=== PATIENT | female | born 1955 | race Caucasian/White ===

== ENCOUNTER 2024-11-12 15:07 | Inpatient (IN) | payer MEDICARE, SELFPAY ==
[2024-11-12 15:16] VITALS: BP 124/71; PULSE 95; RESP 16; TEMP 36.3; O2SAT 97; BMI 22.8
[2024-11-12 15:59] VITALS: BP 124/71; PULSE 95; RESP 16; TEMP 36.3; O2SAT 97
[2024-11-12 16:00] VITALS: BMI 22.8
[2024-11-12] MEDS: oxyCODONE 5 MG Tablet PO ×2 (17:13→23:14)
--- NOTE | 2024-11-12 20:05 | HP.PCM_ITS ---
HPI - General General Date of Admission: 11/12/24 Date of Service: 11/12/24 Chief Complaint: Here for rehabilitation. HPI Narrative GENEVA TERRY, is a 69 Female who presents with followin11/05/2024 Admit [facility]. 11/05/2024 Dr. Barnes performed right total knee replacement. 11/05/2024 Postop pain controlled, tolerating diet, passing flatus. Good urine output. 11/08/2024 Consider discharge home with daughter. Need to decrease pain medications due to somnolence and concurrent use of psychiatric medications. 11/09/2024 Pain control PT/OT. SCD's for dvt prophylaxis. 11/09/2024 PT/OT for SNF. 11/12/2024 Admit to TCU with debility, here for rehabilitation, strengthening, prior to discharge home with daughter. 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 [facility] Medical History (Updated 11/12/24 @ 20:[address] Alli Gutierrez MD) Sleep apnea Osteoporosis Gastric ulcer Dizziness Chronic back pain Osteoarthritis of right knee Anxiety Anemia Debility Arthroplasty of knee planned Medical History no medical history Home Medications ?Medication ?Instructions ?Recorded ?Last Taken ?Type acetaminophen 500 mg capsule 500 mg PO Q4H PRN pain Unknown History apixaban 2.5 mg tablet (Eliquis) 2.5 mg PO BID Blood T hinner 11/12/24 11/12/24 11:30 History benztropine 1 mg tablet 1 mg PO BID Hypersomnia 11/01 08/28 Unknown History buprenorphine 10 mcg/hour weekly 1 patch topical Q7D P ain 11/12/24 Unknown History transdermal patch diazepam 10 mg tablet 10 mg PO QHS PRN PRN sleep 0 11/12/24 Unknown History ferrous sulfate 325 mg (65 mg 325 mg PO DAILY Suppleme nt 11/12/24 Unknown History iron) tablet (FeroSul) mirtazapine 30 mg tablet 45 mg PO QHS Mood 11/12/24 U nknown History omeprazole 20 mg capsule,delayed 40 mg PO DAILY Gastri c Bypass 11/12/24 Unknown History release ondansetron 4 mg disintegrating 4 mg PO Q8H PRN PRN na usea/vomiting 11/12/24 Unknown History tablet oxycodone 5 mg tablet 5 mg PO Q6H PRN pain (scale score 11/12/24 Unknown History 7-10) oxycodone-acetaminophen 5 mg-325 1 - 2 tab PO Q6H PRN PRN pain 11/12/24 11/12/24 11:25 History mg tablet potassium chloride 10 mEq 10 meq PO DAILY Supplement 0 11/12/24 Unknown History tablet,extended release psyllium 1 packet PO DAILY Gastric by pass 11/12/24 Unknown History quetiapine 100 mg tablet 200 mg PO QHS Mood 11/12/24 Unknown History Allergy/AdvReac Type Severity Reaction Status Date / Time Sulfa (Sulfonamide Allergy Rash Verified 11/12/24 16:01 Antibiotics) (sulfa drugs) Family History (Updated 11/12/24 @ 20:[address] Alli Gutierrez MD) Mother Breast cancer Father Heart disease Sister Multiple sclerosis Family History no significant family his Surgical History (Updated 11/12/24 @ 20:[address] Alli Gutierrez MD) History of tonsillectomy Hx of LASIK History of implanted electronic device History of gastric bypass History of colonoscopy History of cataract surgery History of arthroscopy of right knee Status post total right knee replacement Social History (Updated 11/12/24 @ 20:[address] Alli Gutierrez MD) household members: spouse Smoking Status: Never smoker alcohol intake: never substance use type: does not use ROS Constitutional Constitutional: Reports weakness; Denies chills, fever(s) or weight gain ENT HEENT: Denies headache(s), nasal congestion or nasal discharge Cardiovascular Cardiovascular: Denies chest pain or palpitations Respiratory/Chest Respiratory/Chest: Denies cough, excessive phlegm production or shortness of breath with exertion Gastrointestinal Gastrointestinal: Denies abdominal pain, nausea or vomiting Genitourinary Genitourinary: Denies dysuria Musculoskeletal Musculoskeletal: Denies joint pain or joint swelling Integumentary Integumentary: Denies rash or wounds Neurologic Neurologic: Denies focal weakness, numbness or tingling Psychiatric Psychiatric: Denies anxiety, auditory hallucinations, depression, homicidal ideation or suicidal ideation Vital Signs Vital Signs Vital Signs: 11/12/24 15:16 11/12/24 15:16 11/12/24 15:59 Temperature 97.3 F L 97.3 F L Temperature Source Temporal Temporal Pulse Rate 95 95 95 Pulse Rhythm Regular Pulse Strength Normal (2+) Respiratory Rate 16 16 16 Respiratory Effort Normal Non-Labored Respiratory Depth Normal Respiratory Pattern Normal Blood Pressure 124/71 H 124/71 H Blood Pressure Mean 88 88 Blood Pressure Source Monitor Monitor Blood Pressure Position Semi-Fowlers Semi-Fowlers Blood Pressure Location Left Arm Right Arm Pulse Ox 97 97 97 Oxygen Delivery Method Room Air Room Air Room Air Weight Weight: 58.655 kg Body Mass Index (BMI) 22.8 Physical Exam Const alert General Appearance: cooperative HEENT normocephalic Eyes PERRL and EOMs intact bilaterally Neck supple, no JVD and no carotid bruits Resp normal respiratory effort, normal air movement and clear to auscultation bilaterally Cardio regular rate and regular rhythm GI normal to inspection, nondistended, normoactive bowel sounds, non-tender and non-distended Extremity normal capillary refill General Extremity: Negative for edema Skin no rashes or lesions noted General Skin Exam: no breakdown Psych affect normal Appearance: appropriate Assessment & Plan Assessment/Plan (1) Debility: (2) Status post total right knee replacement: (3) Anemia: (4) Anxiety: (5) Osteoarthritis of right knee: (6) Chronic back pain: (7) Dizziness: (8) Gastric ulcer: (9) Osteoporosis: (10) Sleep apnea: PLAN: Plan 69 year old female with below past medical history underwent right total knee arthroplasty 11/05/[address] Barnes, postoperative course uncomplicated, admitted to TCU with debility, here for rehabilitation, strengthening, prior to discharge home with daughter. * Debility - PT/OT. * Pain - Tylenol 500mg q4 prn pain (1-10), Oxycodone 5-10mg q6 prn pain (4-10). * Bowel - Metamucil 1 packet daily, senna/colace 2 tablets bid, Magnesium citrate 300mL daily prn. * Adult immunization - Administer pneumonia vaccine, covid vaccine, flu vaccine as appropriate. * DVT prophylaxis - Eliquis 2.5mg bid thru 12/12/2024. * Chronic pain - Butrans 10mcg 1 patch td qFr. * Iron deficiency anemia - Ferrous sulfate 325mg daily. * Nausea - Zofran odt 4mg q8 prn. * Gastric ulcer - Pantoprazole 40mg daily. * Hypokalemia - KCL 10meq daily. * Extrapyramidal symptoms - Cogentin 1mg bid. The following psychotropic medication was present on admission: Diazepam 10mg qhs prn. Psychotropic medication therapy is indicated for a diagnosis of: Anxiety. Based on my clinical evaluation, continuation of the medication is necessary at this time. Gradual dose reduction plan (select one): ____ GDR will be attempted. Will monitor patient symptoms and behaviors in response to GDR. _x___ GRD contraindicated. Reason contraindicated: stable chronic residential use. The following psychotropic medication was present on admission: Mirtazapine 45mg qhs. Psychotropic medication therapy is indicated for a diagnosis of: Depression. Based on my clinical evaluation, continuation of the medication is necessary at this time. Gradual dose reduction plan (select one): ____ GDR will be attempted. Will monitor patient symptoms and behaviors in response to GDR. __x__ GRD contraindicated. Reason contraindicated: stable chronic residential use. The following psychotropic medication was present on admission: Seroquel 200mg qhs. Psychotropic medication therapy is indicated for a diagnosis of: Schizophrenia. Based on my clinical evaluation, continuation of the medication is necessary at this time. Gradual dose reduction plan (select one): ____ GDR will be attempted. Will monitor patient symptoms and behaviors in response to GDR. __x__ GRD contraindicated. Reason contraindicated: stable chronic residential use.
[2024-11-12] MEDS: Acetaminophen 500 MG Tablet PO (21:06)
[2024-11-12] MEDS: Mirtazapine 30 MG Tablet 45 MG PO (21:08)
[2024-11-12] MEDS: APIXABAN 2.5 MG TABLET (WCH) PO (21:08)
[2024-11-12] MEDS: QUEtiapine 100 MG Tablet 200 MG PO (21:09)
[2024-11-12] MEDS: Benztropine 2 MG Tablet 1 MG PO (21:09)
[2024-11-13 05:20] LABS: Absolute Lymphocyte Count 2.38 X10^3/uL (0.83-4.51); Absolute Neutrophil Count 3.2 X10^3/uL (2.0-7.7); Basophil# 0.01 X10^3/uL; Basophil% 0.2 % (0-1); Eosinophil# 0.16 X10^3/uL; Eosinophils% 2.4 % (0-5); Hematocrit 27.1 % (37-47); Hemoglobin 8.9 g/dL (12.0-15.0); Lymphocyte # 2.38 X10^3/ul (0.83-4.51); Lymphocyte % 36.4 % (19-41); Mean Corp Hgb Conc 32.8 g/dL (32-36); Mean Corpuscular Hgb 32.4 pg (27.0-32.0); Mean Corpuscular Volume 98.5 fL (81-99); Mean Platelet Vol. 8.6 fl (6.2-12.0); Monocyte# 0.82 X10^3/uL; Monocyte% 12.5 % (0-10); NRBC Flagged by Analyzer 0 % (0-5); Neutrophil # 3.15 X10^3/uL (2.7-7.7); Neutrophil % 48.2 % (47-70); Platelet Count 381 K/mm3 (150-450); RBC Distribution Width CV 14.6 % (11.6-14.6); RBC Distribution Width SD 51.7 fl (35.1-43.9); Red Blood Count 2.75 M/mm3 (4.2-5.4); White Blood Count 6.5 K/mm3 (4.4-11.0)
[2024-11-13 06:06] LABS: Anion Gap 9 (5-15); BUN 11 mg/dL (4-19); BUN/Creat Ratio 17.8 RATIO (10-20); Calcium,Total 8.7 mg/dL (7.6-11.0); Carbon Dioxide 22.5 mmol/L (21.0-32.0); Chloride 104 mmol/L (98-108); EST Glomerular Filtration Rate 97 (>60); Glucose 98 mg/dL (70-99); Potassium 3.7 mmol/L (3.3-5.1); Sodium Level 135 mmol/L (133-145)
[2024-11-13] MEDS: oxyCODONE 5 MG Tablet PO ×3 (06:47→18:58)
--- NOTE | 2024-11-13 06:51 | NURSING ---
Patient called out for pain medication this morning to DEBRIDGING MACHINE OPERATOR, DEBRIDGING MACHINE OPERATOR told this nurse patient seems out of it. This nurse went to assess patient. Patient mumbling and was not able to answer orientation questions or follow commands, on several psychotropics for insomnia and anxiety. Patient closed eyes while nurse was in the room and had fallen back asleep. Upon rounds, patient resting with eyes closed. Two hours later, patient calls out for pain medications, much more alert and responsive, A/O x3. Vitals stable, HR 90 and BP 135/77. Patient rated pain 8/10, PRN oxy 10mg administered per patient's request and pain score. [facility] refilled with ice. Patient denies further assistance.
[2024-11-13 06:57] VITALS: BP 135/77; PULSE 90
--- NOTE | 2024-11-13 08:01 | PCM.PN.DRR ---
Documented by User: Valentina Dawkins 11/13/24 08:46 TCU RX Drug Regimen Review Subjective/Objective Subjective/Objective Subjective: TCU Admission. 69 YOF underwent right total knee arthroplasty 11/05/[address] Barnes, postoperative course uncomplicated. Admitted to TCU with debility for strengthening and rehabilitation. Objective: Allergies Sulfa (Sulfonamide Antibiotics) (sulfa drugs) Allergy (Verified 11/12/24 16:01) Rash Current Medications Generic Name Dose Route Start Last Admin Trade Name Freq PRN Reason Stop Dose Admin Acetaminophen 1,000 mg 11/13/24 14:00 Acetaminophen 500 Mg Tablet PO Q8 SHERYL Apixaban 2.5 mg 11/12/24 22:00 11/12/24 21:08 Apixaban 2.5 Mg Tablet ([facility]) PO 12/12/24 22:01 2.5 mg BID SHERYL Administration Benztropine Mesylate 1 mg 11/12/24 22:00 11/12/24 21:09 Benztropine 2 Mg Tablet PO 1 mg BID SHERYL Administration Buprenorphine 1 patch 11/16/24 10:00 Buprenorphine 10 Mcg Patch.Tdwk TD FR SHERYL Diazepam 10 mg 11/12/24 16:10 Diazepam 5 Mg Tablet PO QHS PRN PRN sleep Ferrous Sulfate 325 mg 11/13/24 12:00 Ferrous Sulfate 325 Mg Tablet PO DAILY@1200 [facility] Magnesium Citrate 300 ml 11/12/24 20:24 Magnesium Citrate 300 Ml PO DAILY PRN PRN CONSTIPATION Mirtazapine 45 mg 11/12/24 22:00 11/12/24 21:08 Mirtazapine 30 Mg Tablet PO 45 mg QHS [facility] Administration Ondansetron HCl 4 mg 11/12/24 15:44 Ondansetron Odt 4 Mg Tablet PO Q8H PRN PRN nausea/vomiting Oxycodone HCl 5 - 10 mg 11/13/24 07:46 Oxycodone 5 Mg Tablet PO Q4H PRN PRN Pain Score 4-10 or Pre PT/OT Pantoprazole Sodium 40 mg 11/13/24 10:00 Pantoprazole Sodium 40 Mg Tablet PO DAILY SHERYL Potassium Chloride 10 meq 11/13/24 08:00 Potassium Chloride [facility] Psyllium Hydrophilic Mucilloid 1 packet 11/13/24 10:00 Psyllium 1 Packet PO DAILY SHERYL Quetiapine Fumarate 200 mg 11/12/24 22:00 11/12/24 21:09 Quetiapine 100 Mg Tablet PO 200 mg QHS SHERYL Administration Protocol Senna/Docusate Sodium 2 tablet 11/12/24 22:00 11/12/24 21:12 Senna/Docusate Sodium 1 Tablet PO Not Given BID SHERYL Tuberculin PPD 0.1 ml 11/13/24 10:00 Tuberculin,Purif.Prot.Deriv. 50 Tu/Ml Vial ID 11/13/24 10:01 X1 ONE Tuberculin PPD 0.1 ml 11/20/24 10:00 Tuberculin,Purif.Prot.Deriv. 50 Tu/Ml Vial ID 11/20/24 10:01 X1 ONE Problem List Sleep apnea (Acute) Osteoporosis (Acute) Gastric ulcer (Acute) Dizziness (Acute) Chronic back pain (Chronic) Osteoarthritis of right knee (Acute) Anxiety (Acute) Anemia (Acute) Status post total right knee replacement (Acute) Debility (Acute) Vital Signs Temp Pulse Resp BP Pulse Ox O2 Del Method 97.3 F L 90 16 135/77 H 97 Room Air 11/12/24 15:59 11/13/24 06:57 11/12/24 15:59 11/13/24 06:57 11/12/24 15:59 11/12/24 15:59 Oxygen Delivery Method Room Air Weight: 58.655 kg Body Mass Index (BMI) 22.8 Sodium 135 mmol/L (133-145) 11/13/24 05:13 Potassium 3.7 mmol/L (3.3-5.1) 11/13/24 05:13 Chloride 104 mmol/L (98-108) 11/13/24 05:13 Carbon Dioxide 22.5 mmol/L (21.0-32.0) 11/13/24 05:13 Anion Gap 9 (5-15) 11/13/24 05:13 BUN 11 mg/dL (4-19) 11/13/24 05:13 Creatinine 0.60 mg/dL (0.70-1.20) L 11/13/24 05:13 Est GFR (MDRD) Non-Af 97 (>60) 11/13/24 05:13 BUN/Creatinine Ratio 17.8 RATIO (10-20) 11/13/24 05:13 Glucose 98 mg/dL (70-99) 11/13/24 05:13 Assessment/Plan: 1. Pain/chronic pain: acetaminophen 1000mg PO Q8, Butrans 10mcg patch topically on fridays, oxycodone 5-10mg PO Q4H PRN pain 6-10 (3 doses given for pain scores of 8 and 10 in the knee). Changes made this morning. Please continue to monitor for increased pain, PRN usage, constipation, respiratory depression, falls (BEERs). 2. Bowel: psyllium 1 packet PO daily, senna/docusate 2T PO BID and magnesium citrate 300mL PO daily PRN constipation (no doses given). Please continue to monitor for constipation, diarrhea. Last documented bowel movement was 11/11/24. 3. DVT prophylaxis: apixaban 2.5mg PO BID thru 12/12/24. Please continue to monitor for S/S of bleeding/DVT and hemoglobin (last 8.9g/dL). 4. Iron deficiency anemia: ferrous sulfate 325mg PO daily. Please continue to monitor hemoglobin, constipation, dark stools. 5. Gastric ulcer: pantoprazole 40mg PO daily. Please continue to monitor for diarrhea (BEERs), bleeding, and stomach pain. 6. Extrapyramidal symptoms: benztropine 1mg PO BID. Please continue to monitor for dementia/delirium (BEERs), anticholinergic side effects (constipation, dry mouth, dry eyes, BEERs), drowsiness. 7. Nausea: ondansetron ODT 4mg PO Q8 PRN nausea. No PRN doses given. Please continue to monitor for nausea and PRN usage. 8. Hypokalemia: potassium chloride 10mGq PO daily. Please continue to monitor potassium (last 3.7mmol/L 11/13/24). Assessment/Plan for indications treated with psychotropic medications: 1. Major depression: mirtazapine 45mg PO QHS and quetiapine 200mg PO QHS. Please see physician note regarding GDR. Monitor for drowsiness, dizziness or confusion, appetite and body weight (can cause weight gain), dry mouth, mental status, seizures, abnormal movements/movement disorders (including akathisia, dyskinesia, acute dystonia or restless leg syndrome), suicidal thoughts or behaviors (Boxed Warning). Monitor for constipation (last documented BM = 11/11/24), weight gain, glucose (last 98mg/dL). Monitor for neuroleptic malignant syndrome (fever, muscle rigidity, mental status changes and hemodynamic instability). Monitor for orthostatic hypotension, including postural dizziness, syncope or falls. Implement fall prevention strategies. Check orthostatic vital signs if suspicion of orthostasis. BP range since admission 124-135/71-77. Monitor for efficacy including resident symptoms, behaviors and indications of distress. Monitor for tolerability including mental status, cognition, excessive sleepiness, withdrawal or decreased participation in activities and decline in physical functioning. Maximize use of nonpharmacologic/behavioral interventions to facilitate dose reduction or discontinuation as appropriate. Please evaluate the appropriateness of GDR unless contraindicated. If appropriate, GDR should be attempted in 2 separate quarters within the first year of use or admission to TCU. If GDR attempted, monitor resident symptoms/behaviors. 2. Anxiety/sleep: diazepam 10mg PO QHS PRN sleep (no doses given). Per fill history, resident is taking for psychophysiologic insomnia. Please see physician note regarding GDR. Monitor for sedation, mental status and cognition. Monitor for falls (risk factor for falls) and implement fall prevention strategies. Monitor for respiratory depression. RR range since admission = 90-95 bpm. Monitor prn usage and efficacy of prn doses including resident symptoms, behaviors and indications of distress. Monitor for tolerability including mental status, cognition, excessive sleepiness, withdrawal or decreased participation in activities and decline in physical functioning. Maximize use of nonpharmacologic/behavior interventions to minimize use of prn medication. Prn psychotropic order must be renewed at 14 days per policy. Evaluate continued need for medication, effect of prn medication on resident?s symptoms/distress and tolerability to determine the appropriateness of order renewal. Medical chart and medication regimen reviewed. The following medication irregularities or issues were identified: 1. Diazepam 10mg PO QHS PRN sleep. Please consider adding insomnia for indication as per fill history, resident takes for insomnia. Thanks. Date Date of Note: 11/13/24 Documented by User: Dr. Alli Gutierrez MD 11/13/24 09:06 TCU RX Drug Regimen Review Provider Comments Provider responsibility Provider Comments to Recommendations by Pharmacy Agree
[2024-11-13 08:50] VITALS: BP 123/66; PULSE 102; RESP 16; TEMP 37.3; O2SAT 98
[2024-11-13] MEDS: Potassium Chloride Oral Tablet 10 MEQ PO (08:51)
[2024-11-13] MEDS: Benztropine 2 MG Tablet 1 MG PO ×2 (08:51→22:08)
[2024-11-13] MEDS: Pantoprazole Sodium 40 MG Tablet PO (08:52)
[2024-11-13] MEDS: APIXABAN 2.5 MG TABLET (WCH) PO ×2 (08:52→22:09)
--- NOTE | 2024-11-13 09:35 | NURSING ---
spoke with Dr musa staff for consult order d/t pain management for opioid dependent pt
[2024-11-13] MEDS: Tuberculin,Purif.prot.deriv. 50 TU/ML Vial 0.1 ML ID (09:36)
[2024-11-13 09:44] VITALS: PULSE 93; RESP 16; O2SAT 98
--- NOTE | 2024-11-13 11:07 | CON.PCM_ITS ---
Assessment & Plan Assessment/Plan (1) Status post total right knee replacement: (2) Acute post-operative pain: (3) Chronic, continuous use of opioids: PLAN: Plan -Avoid NSAIDS as she is taking apixaban -She says the butrans patch was removed after surgery 1 week ago. She has not resumed the home butrans 10mcg/hr regimen yet. Nursing to confirm no patch has been placed. I will resume the butrans patch here. -She has been taking oxycodone 6 hours PRN. This has been essentially the equivalence of the butrans patch that she is on at baseline. I will change her PRN oxycodone to 5mg Q6 hours PRN for breakthrough to avoid overdose consideration. Spoke with nursing and she often appears to be comfortable on assessments. -Tylenol 1000mg TID PRN -She is on chronic benzo for insomnia and appears to tolerate this along with the opioids. There is known synergistic risk for sedation in combination with opioids. She has been tolerating butrans with prn oxycodone at baseline with this medication chronically. -Advised that narcan will be ordered and discussed that narcan should be available at home with the patient given this medication combination and she voiced understanding. -She is to follow up with her home pain management team ([facility]) after discharge. -OARRS reviewed HPI Consult Data Date of Consult: 11/13/24 HPI Narrative Reason for Consultation: Post operative pain consultation HPI Narrative: GENEVA TERRY, is a 69 F who presents s/p total knee arthroplasty (11/05) by Dr. Barnes at [facility] to TCU for debility and rehabilitation. She has chronic back pain and right knee pain s/p replacement on 11/05/2024 at [facility]. Her knee is the most painful, but she feels she is doing a bit better since the surgery. She is working with PT. Still reduced range of movement. She is on chronic benzodiazepine 10mg nightly for insomnia. She is managed chronically for pain with butrans 10 mcg/hr patch along with 5mg oxycodone 1 tablet per day prn at baseline. She is seen by [facility]. She states that the butrans patch was removed last Tuesday and has not been replaced. She currently has no patch on. In the TCU she is on Q6hr 10mg oxycodone. She is also on tylenol. She is on apixaban. She denies side effects from the medication. [facility] Medical History (Updated 11/13/24 @ 12:[address] Neal Damon MD) Sleep apnea Osteoporosis Gastric ulcer Dizziness Chronic back pain Osteoarthritis of right knee Anxiety Anemia Debility Arthroplasty of knee planned Medical History no medical history Home Medications ?Medication ?Instructions ?Recorded ?Last Taken ?Type acetaminophen 500 mg capsule 500 mg PO Q4H PRN pain Unknown History apixaban 2.5 mg tablet (Eliquis) 2.5 mg PO BID Blood T hinner 11/12/24 11/12/24 11:30 History benztropine 1 mg tablet 1 mg PO BID Hypersomnia 11/01 08/28 Unknown History buprenorphine 10 mcg/hour weekly 1 patch topical Q7D P ain 11/12/24 Unknown History transdermal patch diazepam 10 mg tablet 10 mg PO QHS PRN PRN sleep 0 11/12/24 Unknown History ferrous sulfate 325 mg (65 mg 325 mg PO DAILY Suppleme nt 11/12/24 Unknown History iron) tablet (FeroSul) mirtazapine 30 mg tablet 45 mg PO QHS Mood 11/12/24 U nknown History omeprazole 20 mg capsule,delayed 40 mg PO DAILY Gastri c Bypass 11/12/24 Unknown History release ondansetron 4 mg disintegrating 4 mg PO Q8H PRN PRN na usea/vomiting 11/12/24 Unknown History tablet oxycodone 5 mg tablet 5 mg PO Q6H PRN pain (scale score 11/12/24 Unknown History 7-10) oxycodone-acetaminophen 5 mg-325 1 - 2 tab PO Q6H PRN PRN pain 11/12/24 11/12/24 11:25 History mg tablet potassium chloride 10 mEq 10 meq PO DAILY Supplement 0 11/12/24 Unknown History tablet,extended release psyllium 1 packet PO DAILY Gastric by pass 11/12/24 Unknown History quetiapine 100 mg tablet 200 mg PO QHS Mood 11/12/24 Unknown History Allergy/AdvReac Type Severity Reaction Status Date / Time Sulfa (Sulfonamide Allergy Rash Verified 11/12/24 16:01 Antibiotics) (sulfa drugs) Family History (Updated 11/12/24 @ 20:[address] Alli Gutierrez MD) Mother Breast cancer Father Heart disease Sister Multiple sclerosis Family History no significant family his Surgical History (Updated 11/12/24 @ 20:[address] Alli Gutierrez MD) History of tonsillectomy Hx of LASIK History of implanted electronic device History of gastric bypass History of colonoscopy History of cataract surgery History of arthroscopy of right knee Status post total right knee replacement Social History (Updated 11/12/24 @ 20:[address] Alli Gutierrez MD) household members: spouse Smoking Status: Never smoker alcohol intake: never substance use type: does not use ROS Constitutional Constitutional: Reports weakness; Denies chills, fever(s) or weight gain ENT HEENT: Denies headache(s), nasal congestion or nasal discharge Cardiovascular Cardiovascular: Denies chest pain or palpitations Respiratory/Chest Respiratory/Chest: Denies cough, excessive phlegm production or shortness of breath with exertion Gastrointestinal Gastrointestinal: Denies abdominal pain, nausea or vomiting Genitourinary Genitourinary: Denies dysuria Musculoskeletal Musculoskeletal: Reports joint pain; Denies joint swelling Integumentary Integumentary: Denies rash or wounds Neurologic Neurologic: Denies focal weakness, numbness or tingling Psychiatric Psychiatric: Denies anxiety Physical Exam Narrative Pain over the right knee. Incisions c/d/i No erythema Some swelling Reduced ROM with pain Const alert, oriented x3 and no apparent distress Psych affect normal Lab / Micro Data 11/13/24 05:13 11/13/24 05:13 Labs: Laboratory Results - last 24 hr 11/13/24 05:13: WBC 6.5, RBC 2.75 L, Hgb 8.9 L, Hct 27.1 L, MCV 98.5, MCH 32.4 H , MCHC 32.8, RDW Std Deviation 51.7 H, RDW Coeff of [place] 14.6, Plt Count 381, MPV 8.6, Immature Gran % (Auto) 0.300, Neut % (Auto) 48.2, Lymph % (Auto) 36.4, [place] % (Auto) 12.5 H, Eos % (Auto) 2.4, Baso % (Auto) 0.2, Absolute Neuts (auto) 3.2, Absolute Lymphs (auto) 2.38, Nucleated RBC % 0, Sodium 135, Potassium 3.7, Chloride 104, Carbon Dioxide 22.5, Anion Gap 9, BUN 11, Creatinine 0.60 L, Estim Creat Clear Calc 54.90, Est GFR (MDRD) Non-Af 97, BUN/Creatinine Ratio 17.8, Glucose 98, Calcium 8.7
--- NOTE | 2024-11-13 11:45 | NURSING ---
Dr Damon here, spoke with pt regarding Butrans patch & PRN OXY. Wants pt to restart Butrans patch and decrease Oxyir to 5mg Q6hrs d/t benzo use. wound like to have PRN narcan available.
[2024-11-13] MEDS: Ferrous Sulfate 325 MG Tablet PO (11:56)
--- NOTE | 2024-11-13 12:00 | NURSING ---
pt called this nurse to room after Dr Damon left pt room, pt asking this nurse to explain what he was doing with her medications. Dr Damon spent at least 20-25 minutes in pt room explaining that he was restarting her Butrans patch and reducing dose and frequency of her PRN oxyir to reduce side effects & risk of excessive drowsiness or respiratory distress. pt verbalized understanding. pt reports that she takes her meds differently at home.
[2024-11-13] MEDS: Buprenorphine 10 MCG PATCH.TDWK 1 PATCH TD (12:04)
[2024-11-13] MEDS: Acetaminophen 500 MG Tablet 1000 MG PO ×2 (13:36→22:09)
[2024-11-13 14:26] VITALS: BMI 22.8
--- NOTE | 2024-11-13 15:17 | CHAPLAIN ---
Type of Pastoral Visit ___ Initial Visit ___ Follow-up Visit ___ On-call Visit ___ General Patient Visit ___ Spiritual Assessment ___ Family Conference ___ Bereavement ___ Rapid Response ___ Code Blue ___ Other (describe below) Pastoral Care Referral From ___ Patient ___ Family ___ Nurse ___ Physician ___ Electronics Mechanic ___ Blood Splatter Analyst ___ Other (describe below) Sacrament/Intervention ___ Active listening ___ Anointing ___ Religious ___ Bereavement ___ Communion ___ Anai exploration ___ ___ Life review ___ Prayer ___ Reconciliation ___ Sacrament of Sick ___ Supportive presence ___ Wedding ___ Other (describe below) Pastoral Comments patient was not available at time of attempted visit
[2024-11-13 16:33] VITALS: TEMP 36.9
[2024-11-13] MEDS: QUEtiapine 100 MG Tablet 200 MG PO (22:09)
[2024-11-13] MEDS: Mirtazapine 30 MG Tablet 45 MG PO (22:09)
[2024-11-13] MEDS: diazePAM 5 MG Tablet 10 MG PO (23:52)
--- NOTE | 2024-11-14 00:01 | NURSING ---
Patient utilized call hartley to speak with nurse regarding medications. This nurse entered patient's room, patient up at the side of the bed. Patient asks this nurse, did you give me my muscle relaxer? I have bad insomnia and cannot sleep, I am getting angsty. This nurse told patient she received all SHERYL bedtime medications, but she does have PRN valium that can be administered upon request for sleep. Patient states, Well I need that every night with the other medications. This nurse explained to patient the potential negative side effects of taking several psychotropics at once. Also explained why Valium is ordered as PRN, and must be requested by patient as needed. Patient states, I take 4 medications for sleep at home. This nurse explained to patient that the medication would have to be reviewed and approved by Dr. Gutierrez for it to be changed to [facility], but she could take it now if she would like. Patient requested PRN Valium. This nurse administered medication per order. Patient states, what if this doesn't help me sleep? This nurse recommended non-pharmacological interventions such as warm blanket, turning television off, turning lights low, cracking door closed, and bedtime snack. Patient denies non-pharmacologic interventions at this time. This nurse helped reposition patient to comfort, call light in reach, bed in lowest position. Patient denies further assistance.
[2024-11-14] MEDS: oxyCODONE 5 MG Tablet PO ×2 (05:31→15:38)
[2024-11-14] MEDS: Acetaminophen 500 MG Tablet 1000 MG PO ×3 (05:32→21:10)
[2024-11-14 09:16] VITALS: BP 116/69; PULSE 95; RESP 16; TEMP 36.8; O2SAT 97
[2024-11-14] MEDS: APIXABAN 2.5 MG TABLET (WCH) PO ×2 (09:19→21:08)
[2024-11-14] MEDS: Potassium Chloride Oral Tablet 10 MEQ PO (09:19)
[2024-11-14] MEDS: Benztropine 2 MG Tablet 1 MG PO ×2 (09:19→21:08)
[2024-11-14] MEDS: Pantoprazole Sodium 40 MG Tablet PO (09:19)
--- NOTE | 2024-11-14 09:20 | NURSING ---
pt c/o not sleeping well lastnight because the shift stacker nurse did not administer her valium with her routine night meds. explained the concern of overdosing pt since pain patch started yesterday. pt stated I guess, but I take valium at home with all those meds and I also take it in the morning Explained to pt that this nurse will have Dr Gutierrez discuss options with her & this nurse cannot administer her valium because the order is PRN at HS, not BID. pt verbalized understanding. states that her daughter will bring in her med list from home.
[2024-11-14 09:22] VITALS: PULSE 95; RESP 16; O2SAT 95
--- NOTE | 2024-11-14 11:57 | NURSING ---
Slot Machine Mechanic Note; Activity Asset: Lala Cook is in dependent in her choice of daily activities. She prefers in room activities over group. She has her smartphone, watches tv, reads and family will visit. Staff will remind her of weekly activities and respect her right to say no.
[2024-11-14] MEDS: Ferrous Sulfate 325 MG Tablet PO (11:58)
[2024-11-14] MEDS: Loperamide 2 MG Capsule PO (12:01)
--- NOTE | 2024-11-14 14:34 | CASEMGMT ---
Social Work- SW met with pt to complete initial assessment; SW introduced self and role. SW verified/updated contacts. Patient confirmed code status as full code. Pt?s goal is to discharge to pt dtr home with OP therapy prior to returning home with spouse. Pt reports that she has been working towards recovery since the initial event in 05/26 in which pt feel down her basement stairs, breaking her femur and needing the initial surgery. Pt reports that she required a second surgery in 11/24 due to complications. Pt has been unable to drive or stand well since the initial injury. Pt spoke at length regarding her insomnia and the high amounts of medications that she takes. Pt reports that even with that level of medication, pt sleeps at most 3-4 hours at a time at night. Pt reports a care team of: Dr Rudd, PCP, [facility]; Dr Barnes, [facility]; Dr Price, [facility], [facility]; Dr [facility] in [place]. Pt scored 15/15 on BIMS and reports 0/2 on PHQ9; reports that anxiety and depression are at baseline. SW will continue to follow for DC planning. RAJESH Green
--- NOTE | 2024-11-14 15:48 | CHAPLAIN ---
Type of Pastoral Visit _x__ Initial Visit ___ Follow-up Visit ___ On-call Visit ___ General Patient Visit ___ Spiritual Assessment ___ Family Conference ___ Bereavement ___ Rapid Response ___ Code Blue ___ Other (describe below) Pastoral Care Referral From _x__ Patient ___ Family ___ Nurse ___ Physician ___ Industrial Recruiter ___ Loader Unloader ___ Other (describe below) Sacrament/Intervention _x__ Active listening ___ Anointing ___ Moravian ___ Bereavement ___ Communion ___ Anai exploration ___ ___ Life review _x__ Prayer ___ Reconciliation ___ Sacrament of Sick _x__ Supportive presence ___ Wedding ___ Other (describe below) Pastoral Comments patient and daughter are in the room; pt states that she is doing well and explains the surgeries she has had in recent years; pt is connected to a small amish and is happy to say that her daughter was recently baptized; daughter talks about her new amish and both acknowledge need for God in the lives of all; prayer and presence given
--- NOTE | 2024-11-14 16:11 | CASEMGMT ---
Social Work Dtr, Jacinda, presented to this worker's office inquiring further about the routine POC meetings. SW explained to meeting format with participating disciplines - PT/OT/RD/AC/RN/TIAN. Dtr inquired if pt had to remain admitted until after that meeting. SW denied, though, educated to average LOS 14-20 days, and typically no less than 7-10 days to allow therapy to improve pt's endurance and strength. Educated to [facility] insurance with NRD 11/15 and continued stay is not guaranteed with each review, providing a 3-day notice for DC, though, insurance may not provide outcome of day of update and pt will be covered during that time. Dtr stated pt was not doing well when being discharged from [facility] and needed rehab. SW reviewed pt's updated therapy notes this date. Pt is CGA-SBA for all tasks, completing 5 steps and ambulating about 90 ft. Pt's levels of function are well and no initial concerns with DC home, however, noted the goal is to improve strength, endurance and independence prior to DC; as CGA-SBA is still not mod I. Dtr expressed understanding and agreeable to tx plan. Dtr confirmed the plan is for pt to DC to dtr's [facility] suite with 2 DESIRE. Dtr voiced her wanting pt to continue with OP therapy at DC but pt doesn't think she needs it and requested assistance from IDT to encourage pt to accept it. SW assured dtr OP therapy will be recommended and encouraged. SW offered for dtr to attend therapy training to ensure dtr felt comfortable taking pt home. Dtr agreed and scheduled for 11/16 at 1100. TIAN discussed possible DME needs. Dtr identified possible need for 3-in-1 commode and FWW. SW educated both items can be covered by insurance and this worker can assist with coordination of items at time of DC. Dtr expressed great appreciation for role of this worker and assistance with DC planning. SW will continue to follow. Ailyn Phelan AGING BOX HAND ASSURANCE ASSOCIATE
--- NOTE | 2024-11-14 16:49 | NURSING ---
dr bell updated on pt requesting her valium as prescribed at home scheduled AM & HS. orders entered per pt home regimen. pt, daughter and aware and thankful. Pt states I need it to sleep, I take them a special way at home to sleep, I take all 4 pills at bedtime.
[2024-11-14] MEDS: diazePAM 5 MG Tablet 10 MG PO (21:07)
[2024-11-14] MEDS: Mirtazapine 30 MG Tablet 45 MG PO (21:08)
[2024-11-14] MEDS: QUEtiapine 100 MG Tablet 200 MG PO (21:10)
--- NOTE | 2024-11-14 21:13 | NURSING ---
Patient requests HS meds at this time as ordered patient states I want them all at the same time that's how I take them at home. Patient educated on medications as ordered and possible side effect of lethargy or drowsiness. Patient verbalizes understanding, states Oh please, I hardly sleep 3 hours with those meds. Assisted to bathroom x1 assist per pt. request. Gait slow and unsteady at times. Call light in reach.
[2024-11-15] MEDS: Acetaminophen 500 MG Tablet 1000 MG PO ×3 (05:56→22:12)
[2024-11-15] MEDS: APIXABAN 2.5 MG TABLET (WCH) PO ×2 (09:00→22:10)
[2024-11-15] MEDS: Potassium Chloride Oral Tablet 10 MEQ PO (09:00)
[2024-11-15] MEDS: Benztropine 2 MG Tablet 1 MG PO ×2 (09:00→22:10)
[2024-11-15] MEDS: diazePAM 5 MG Tablet 10 MG PO ×2 (09:00→22:09)
[2024-11-15] MEDS: Pantoprazole Sodium 40 MG Tablet PO (09:00)
[2024-11-15 09:09] VITALS: BP 126/71; PULSE 95; RESP 16; TEMP 36.8; O2SAT 96
[2024-11-15] MEDS: Loperamide 2 MG Capsule PO (10:48)
[2024-11-15] MEDS: oxyCODONE 5 MG Tablet PO ×2 (10:50→17:17)
[2024-11-15] MEDS: Ferrous Sulfate 325 MG Tablet PO (11:48)
[2024-11-15] MEDS: Mirtazapine 30 MG Tablet 45 MG PO (22:10)
[2024-11-15] MEDS: QUEtiapine 100 MG Tablet 200 MG PO (22:12)
[2024-11-16] MEDS: Acetaminophen 500 MG Tablet 1000 MG PO ×3 (05:17→21:53)
[2024-11-16 09:05] VITALS: BP 126/83; PULSE 97; RESP 17; TEMP 36.3; O2SAT 98
[2024-11-16] MEDS: Potassium Chloride Oral Tablet 10 MEQ PO (09:08)
[2024-11-16] MEDS: Benztropine 2 MG Tablet 1 MG PO ×2 (09:08→21:52)
[2024-11-16] MEDS: APIXABAN 2.5 MG TABLET (WCH) PO ×2 (09:09→21:50)
[2024-11-16] MEDS: Pantoprazole Sodium 40 MG Tablet PO (09:10)
[2024-11-16] MEDS: Loperamide 2 MG Capsule PO (10:05)
[2024-11-16] MEDS: diazePAM 5 MG Tablet 10 MG PO ×2 (10:05→21:53)
[2024-11-16] MEDS: Ferrous Sulfate 325 MG Tablet PO (12:53)
[2024-11-16] MEDS: oxyCODONE 5 MG Tablet PO ×2 (12:54→20:53)
--- NOTE | 2024-11-16 13:19 | NURSING ---
notified dr bell pt daughter states dr hopkins from [facility] would like pt on benztropine-1mg 2x/day- dr is onboard to help with pt sleep- let dr bell know that per nursing report pt slept we1l last night and has been drowsy today
--- NOTE | 2024-11-16 14:58 | DS.PCM_ITS ---
Providers Date of Admission: 11/12/24 Primary Care Physician: Dr. Cristian Rudd MD Consultations 11/13/24 07:45 Consult: Pain Management Routine Consulting Provider: Neal Damon Reason for Consult: Pain management in opioid dependent patient. EMERGENT Consult: No MD Notified: Yes Date Notified: 11/13/24 Time Notified: 07:45 Method of Notification: Verbal Reason For Visit: TKA Diagnosis Discharge Diagnosis (1) Status post total right knee replacement: Status: Acute Code(s): Z96.651 - Presence of right artificial knee joint (2) Acute post-operative pain: Status: Acute Code(s): G89.18 - Other acute postprocedural pain (3) Chronic, continuous use of opioids: Status: Chronic Code(s): F11.90 - Opioid use, unspecified, uncomplicated Plan 69 year old female with below past medical history underwent right total knee arthroplasty 11/05/[address] Barnes, postoperative course uncomplicated, admitted to TCU with debility, here for rehabilitation, strengthening, prior to discharge home with daughter. * Debility - PT/OT. * Pain - Tylenol 500mg q4 prn pain (1-10), Oxycodone 5-10mg q6 prn pain (4-10). * Bowel - Metamucil 1 packet daily, senna/colace 2 tablets bid, Magnesium citrate 300mL daily prn. * Adult immunization - Administer pneumonia vaccine, covid vaccine, flu vaccine as appropriate. * DVT prophylaxis - Eliquis 2.5mg bid thru 12/12/2024. * Chronic pain - Butrans 10mcg 1 patch td qFr. * Iron deficiency anemia - Ferrous sulfate 325mg daily. * Nausea - Zofran odt 4mg q8 prn. * Gastric ulcer - Pantoprazole 40mg daily. * Hypokalemia - KCL 10meq daily. * Extrapyramidal symptoms - Cogentin 1mg bid. The following psychotropic medication was present on admission: Diazepam 10mg qhs prn. Psychotropic medication therapy is indicated for a diagnosis of: Anxiety. Based on my clinical evaluation, continuation of the medication is necessary at this time. Gradual dose reduction plan (select one): ____ GDR will be attempted. Will monitor patient symptoms and behaviors in response to GDR. _x___ GRD contraindicated. Reason contraindicated: stable chronic senior care use. The following psychotropic medication was present on admission: Mirtazapine 45mg qhs. Psychotropic medication therapy is indicated for a diagnosis of: Depression. Based on my clinical evaluation, continuation of the medication is necessary at this time. Gradual dose reduction plan (select one): ____ GDR will be attempted. Will monitor patient symptoms and behaviors in response to GDR. __x__ GRD contraindicated. Reason contraindicated: stable chronic senior care use. The following psychotropic medication was present on admission: Seroquel 200mg qhs. Psychotropic medication therapy is indicated for a diagnosis of: Schizophrenia. Based on my clinical evaluation, continuation of the medication is necessary at this time. Gradual dose reduction plan (select one): ____ GDR will be attempted. Will monitor patient symptoms and behaviors in response to GDR. __x__ GRD contraindicated. Reason contraindicated: stable chronic senior care use. Medications at Discharge Home Medications benztropine 1 mg tablet 1 mg PO BID Hypersomnia 11/12/24 buprenorphine 10 mcg/hour weekly transdermal patch 1 patch topical Q7D Pain 11/12/24 mirtazapine 30 mg tablet 45 mg PO QHS Mood 11/12/24 omeprazole 20 mg capsule,delayed release 40 mg PO DAILY Gastric Bypass 11/12/24 oxycodone 5 mg tablet 5 mg PO Q6H PRN pain (scale score 7-10) 11/12/24 potassium chloride 10 mEq tablet,extended release 10 meq PO DAILY Supplement 11/12/24 psyllium 1 packet PO DAILY Gastric bypass 11/12/24 quetiapine 100 mg tablet 200 mg PO QHS Mood 11/12/24 acetaminophen 500 mg tablet 1,000 mg (2 x 500 mg) PO Q8 #0 tabs 11/16/24 apixaban 5 mg tablet (Eliquis) 2.5 mg (1/2 x 5 mg) PO BID 23 days #23 tabs 11/16/24 diazepam 5 mg tablet 10 mg (2 x 5 mg) PO QAM #0 tabs 11/16/24 diazepam 5 mg tablet 10 mg (2 x 5 mg) PO QHS #0 tabs 11/16/24 ferrous sulfate 325 mg (65 mg iron) tablet (FeroSul) 325 mg PO DAILY@1200 30 days #30 tabs 11/16/24 oxycodone 5 mg tablet 5 mg PO Q6H PRN PRN Pain Score 4-10 Or Pre Pt/Ot 7 days #28 tabs 11/16/24 Hospital Course Operations total knee replacement (Right.) Procedures None Summary of Care Provided Minutes Spent on Discharge: 35 Hospital Course: 69 year old female with below past medical history underwent right total knee arthroplasty 11/05/[address] Barnes, postoperative course uncomplicated, admitted to TCU with debility, here for rehabilitation, strengthening, prior to discharge home with daughter. Discharge home with daughter 11/20/2024, outpatient PT, FWW, 3-in-1 commode. FWW: Patient is unsafe to use a cane and requires a walker for ambulation in the home and the community. 3-in-1 Commode: Patient is confined to a single room unable to safely access toilet. Patient is confined to one level of the home environment and there is no toilet on that level. Physical Exam Const alert General Appearance: cooperative HEENT normocephalic Eyes PERRL and EOMs intact bilaterally Neck supple, no JVD and no carotid bruits Resp normal respiratory effort, normal air movement and clear to auscultation bilaterally Cardio regular rate and regular rhythm GI normal to inspection, nondistended, normoactive bowel sounds, non-tender and non-distended Extremity normal capillary refill General Extremity: Negative for edema Skin no rashes or lesions noted General Skin Exam: no breakdown Psych affect normal Appearance: appropriate Weight / BMI Weight Weight: 58.468 kg Body Mass Index (BMI) 22.8 ABG / Lab / Microbiology Data 11/13/24 05:13 11/13/24 05:13 D/C Instructions Discharge Diet: No restrictions Discharge Activity: Return to Normal Activity, May Drive and Use Walker Weight Bearing Status: Weight bearing as tolerated Call your doctor if you observe: Fever of 101 or Higher, Inability to urinate, Inability to have a bowel movement, Shortness of breath, Dizziness, Fainting spells, Swelling in the ankles, Chest pain and Uncontrolled pain DC O2, CPAP, BIPAP Needs Home O2 Discharge instructions: No Additional Instructions: Discharge home with daughter 11/20/2024, outpatient PT, FWW, 3-in-1 commode. FWW: Patient is unsafe to use a cane and requires a walker for ambulation in the home and the community. 3-in-1 Commode: Patient is confined to a single room unable to safely access toilet. Patient is confined to one level of the home environment and there is no toilet on that level. Please Follow Up With: Mayco Barnes MD When: As scheduled. Meaningful Use Info Meaningful Use Meaningful Use Diagnoses (Choose all that apply): None applicable Ischemic Stroke Statin Dosing Therapy Reference: STATIN DOSE THERAPY REFERENCE: * Patients > 75 years receive moderate or high dose statin therapy. * Patients 75 years or YOUNGER should receive HIGH intensity statin dose unless contraindicated. You will be required to document reason for non-treatment if statin daily dose does not meet guidelines. HIGH DOSE STATIN THERAPY DAILY Atorvastatin > than or = to 40 mg Rosuvastatin > than or = to 20 mg Amlodipine + Atorvastatin > than or = to 2.5/40 mg Ezetimibe + Simvastatin 10/80 mg Simvastatin 80mg Discharge Plan Admission Admit Date/Time: 11/12/24 15:07 Primary Reason for Your Visit: Debility. Attending Provider: Alli Gutierrez Chi Primary Care Provider: Cristian Rudd Consulting Providers: Neal Damon Instructions Additional Instructions / Restrictions: Discharge home with daughter 11/20/2024, outpatient PT, FWW, 3-in-1 commode. FWW: Patient is unsafe to use a cane and requires a walker for ambulation in the home and the community. 3-in-1 Commode: Patient is confined to a single room unable to safely access toilet. Patient is confined to one level of the home environment and there is no toilet on that level. Discharge Orders/Prescriptions Prescriptions: New acetaminophen 500 mg Tablet 1,000 mg PO Q8 Qty: 0 0RF ferrous sulfate [FeroSul] 325 mg (65 mg iron) Tablet 325 mg PO DAILY@1200 30 Days Qty: 30 0RF diazepam 5 mg Tablet 10 mg PO QAM Qty: 0 0RF diazepam 5 mg Tablet 10 mg PO QHS Qty: 0 0RF oxycodone 5 mg Tablet 5 mg PO Q6H PRN PRN (Reason: Pain Score 4-10 Or Pre Pt/Ot) 7 Days Qty: 28 0RF Eliquis 5 mg Tablet 2.5 mg PO BID 23 Days Qty: 23 0RF Continued quetiapine 100 mg tablet 200 mg PO QHS benztropine 1 mg tablet 1 mg PO BID buprenorphine 10 mcg/hour patch weekly 1 patch topical Q7D mirtazapine 30 mg tablet 45 mg PO QHS omeprazole 20 mg capsule,delayed release(DR/EC) 40 mg PO DAILY potassium chloride 10 mEq tablet extended release 10 meq PO DAILY psyllium Packet 1 packet PO DAILY Rx Instructions: mix into at least 8 oz of water or juice before administering Discontinued Eliquis 2.5 mg tablet 2.5 mg PO BID diazepam 10 mg tablet 10 mg PO QHS PRN PRN (Reason: sleep) ferrous sulfate [FeroSul] 325 mg (65 mg iron) tablet 325 mg PO DAILY ondansetron 4 mg tablet,disintegrating 4 mg PO Q8H PRN PRN (Reason: nausea/vomiting) oxycodone-acetaminophen 5-325 mg tablet 1 - 2 tab PO Q6H PRN PRN (Reason: pain) acetaminophen 500 mg capsule 500 mg PO Q4H PRN (Reason: pain) No Action oxycodone 5 mg tablet 5 mg PO Q6H PRN (Reason: pain (scale score 7-10)) Referrals / Follow Up: Cristian Rudd MD [Primary Care Provider] - Disposition Disposition (needs filled in before D/C Order can be placed): Home, Self Care
--- NOTE | 2024-11-16 15:07 | CASEMGMT ---
Social Work Therapy reports family training went well and no concerns with DC next week. - SW phoned dtr to inquire about family training. Dtr expressed comfort with pt DC to her home next week. Dtr requesting DC 11/20. SW agreed. Dtr to transport. SW inquired about DME needs. Dtr confirmed request for 3-in-1 commode and FWW, and [facility]. SW to coordinate. Dtr appreciative. - SW spoke with pt at bedside. Discussed DC plans. Pt agreed to DC date, DME and OP PT. No other issues expressed. SW completed BIMS () and PHQ-2 () for MDS assessment. - IDT updated. - [place] [facility] [place] [facility] Faxed referral to [facility] Plan: DC to dtr's home 11/20, [facility] OP PT, 3-in-1 commode, FWW Ailyn Phelan MILK RUNNER WORK CHECKER
[2024-11-16] MEDS: QUEtiapine 100 MG Tablet 200 MG PO (21:50)
[2024-11-16] MEDS: Mirtazapine 30 MG Tablet 45 MG PO (21:50)
[2024-11-17] MEDS: Acetaminophen 500 MG Tablet 1000 MG PO ×3 (06:47→21:57)
[2024-11-17 08:03] VITALS: BP 126/71; PULSE 89; RESP 16; TEMP 36.9; O2SAT 97
[2024-11-17] MEDS: Potassium Chloride Oral Tablet 10 MEQ PO (08:07)
[2024-11-17] MEDS: APIXABAN 2.5 MG TABLET (WCH) PO ×2 (08:07→21:57)
[2024-11-17] MEDS: Benztropine 2 MG Tablet 1 MG PO ×2 (08:07→21:57)
[2024-11-17] MEDS: Pantoprazole Sodium 40 MG Tablet PO (08:07)
[2024-11-17] MEDS: diazePAM 5 MG Tablet 10 MG PO ×2 (08:10→21:56)
[2024-11-17 10:00] VITALS: PULSE 95; RESP 19; O2SAT 97
[2024-11-17] MEDS: Ferrous Sulfate 325 MG Tablet PO (13:10)
[2024-11-17] MEDS: oxyCODONE 5 MG Tablet PO ×2 (13:10→20:02)
[2024-11-17] MEDS: Loperamide 2 MG Capsule PO (20:02)
[2024-11-17] MEDS: QUEtiapine 100 MG Tablet 200 MG PO (21:57)
[2024-11-17] MEDS: Mirtazapine 30 MG Tablet 45 MG PO (21:58)
[2024-11-18 01:38] VITALS: PULSE 101; RESP 18; O2SAT 96
[2024-11-18] MEDS: Acetaminophen 500 MG Tablet 1000 MG PO ×3 (05:32→22:31)
[2024-11-18 09:04] VITALS: BP 120/65; PULSE 101; RESP 16; TEMP 37.1; O2SAT 95
[2024-11-18] MEDS: Potassium Chloride Oral Tablet 10 MEQ PO (09:07)
[2024-11-18] MEDS: Benztropine 2 MG Tablet 1 MG PO ×2 (09:07→22:27)
[2024-11-18] MEDS: Pantoprazole Sodium 40 MG Tablet PO (09:08)
[2024-11-18] MEDS: APIXABAN 2.5 MG TABLET (WCH) PO ×2 (09:08→22:28)
[2024-11-18] MEDS: diazePAM 5 MG Tablet 10 MG PO ×2 (09:12→22:32)
--- NOTE | 2024-11-18 11:37 | NURSING ---
Nursing in room to complete patient care. Nursing making bed and found pill in bed. Nursing compared medication to medications patient is taking while here on TCU and none resembled this pill. Medication white and oval with score and no markings. Nursing showed medication to patient. Patient denies having any medications from home in room. Call placed to pharmacy and spoke with pharmacist. Unable to identify unmarked medication. Medication was disposed of in med destroyer with GOLD BEATER as witness. Later when nursing reentered patient's room to answer bathroom call light, patient states my brought that for him to take and accidentally drop it in the bed. Nursing explained [facility] hospital policy regarding medication use. Patient acknowledges. No further questions/concerns. Call light within reach.
[2024-11-18] MEDS: oxyCODONE 5 MG Tablet PO (13:36)
[2024-11-18] MEDS: Ferrous Sulfate 325 MG Tablet PO (13:36)
[2024-11-18] MEDS: Mirtazapine 30 MG Tablet 45 MG PO (22:29)
[2024-11-18] MEDS: QUEtiapine 100 MG Tablet 200 MG PO (22:30)
--- NOTE | 2024-11-19 04:48 | NURSING ---
THIS NURSE OBSERVED PATIENT SITTING ON SIDE OF BED, PATIENT APPEARS DROWSY WITH MUMBLED SPEECH. PATIENT ASKED THIS NURSE TO GRAB HER PURSE TO HELP HER LOOK FOR SOMETHING IN HER BAG. PATIENT WAS NOT ABLE TO EXPLAIN DIRECTLY WHAT SHE WAS LOOKING FOR IN HER PURSE. PATIENT THEN ASKED THIS NURSE TO OPEN ZIPPER POUCH OF PURSE. THIS NURSE THEN FOUND CONTROLLED SUBSTANCE AMBIEN IN ZIPPER POUCH. PATIENT CONTINUED TO APPEAR DROWSY WITH MUMBLED SPEECH. THIS NURSE ATTEMPTED TO EDUCATE PATIENT ON TCU GUIDELINES REGARDING MEDICATION ADMINISTRATION. THIS NURSE NOTIFIED RN OF INCIDENT.
[2024-11-19] MEDS: Acetaminophen 500 MG Tablet 1000 MG PO ×3 (05:02→22:15)
--- NOTE | 2024-11-19 05:35 | NURSING ---
Addendum entered by Rena Park 11/19/24 08:29: dr gutierrez reduced valium to 5mg QAM & QHS. pt alert and oriented this AM, eating brkfst. states she slept well lastnight. Original Note: Written communication left for Dr. Gutierrez regarding suspicion of patient self-medicating and concern for oversedation at patient's request AEB Babarien observed in purse from home (locked up and verified with second nurse with count sheet provided by pharmacy), day nurse observed pill in bed on 11/18/24 that patient stated was dropped by spouse, hyperfixation on sleep despite current medications and observed with eyes closed in bed frequently throughout the night, frequently asking if time for next dose of xanax, very drowsy at times, mumbling words, closing eyes while walking to and from bathroom, dropping personal items, able to state correct person/place/time/situation, responds to verbal stimuli. PRN Narcan in place as ordered, no distress observed at this time. Call light in reach.
[2024-11-19 07:25] VITALS: PULSE 75; RESP 16; O2SAT 95
--- NOTE | 2024-11-19 08:16 | NURSING ---
This RN was updated about staff finding Ambien in resident's purse overnight and concern that resident has been self medicating. This RN talked with resident this morning. She was sitting up in recliner, eating breakfast. Asked if she remembered nursing helping her find something in her purse. She denied remembering that, said so staff was going through my purse? Let her know nursing reported resident wanted nurse to help her find something in her purse and came across Ambien by chance. Per policy medication had to be locked up on unit. She nodded and added I didn't take anything. That must've been from before. Let her know staff was worried she had taken own meds on top of what was given by nurse. She denied. Nurse re-iterated danger of taking meds not given by nursing and that any home meds had to be locked up. She denied having any other home meds with her. Let her know Babarien would be sent home with her at [place]. She was accepting of information, had no questions or concerns. Only other request was for ice water, fresh ice water provided.
[2024-11-19 08:19] VITALS: BP 121/74; PULSE 97; RESP 16; TEMP 36.9; O2SAT 98
--- NOTE | 2024-11-19 08:21 | NURSING ---
Washing Machine Repairer Note; MDS for 11/19/2024 Complete
[2024-11-19] MEDS: APIXABAN 2.5 MG TABLET (WCH) PO ×2 (08:23→22:13)
[2024-11-19] MEDS: Benztropine 2 MG Tablet 1 MG PO ×2 (08:23→22:13)
[2024-11-19] MEDS: Pantoprazole Sodium 40 MG Tablet PO (08:23)
[2024-11-19] MEDS: Potassium Chloride Oral Tablet 10 MEQ PO (08:23)
[2024-11-19] MEDS: oxyCODONE 5 MG Tablet PO ×2 (08:24→22:19)
[2024-11-19] MEDS: diazePAM 5 MG Tablet PO ×2 (08:25→22:12)
--- NOTE | 2024-11-19 11:40 | NURSING ---
Offered covid vaccine, VIS provided. Resident declines.
[2024-11-19] MEDS: Ferrous Sulfate 325 MG Tablet PO (13:06)
--- NOTE | 2024-11-19 13:09 | NURSING ---
pt slurring words, more loopy this afternoon,eyes droopy, slow moving motions. pt asking when she can have oxyir again. Explained not until 1430, pt verbalized understanding. pt resting in bed, x2 staff to assist pt up in bed. call light in reach. [facility] filled with ice and water.
[2024-11-19] MEDS: Mirtazapine 30 MG Tablet 45 MG PO (22:13)
[2024-11-19] MEDS: QUEtiapine 100 MG Tablet 200 MG PO (22:15)
[2024-11-20] MEDS: Acetaminophen 500 MG Tablet 1000 MG PO (05:08)
[2024-11-20 06:31] LABS: Absolute Lymphocyte Count 2.26 X10^3/uL (0.83-4.51); Absolute Neutrophil Count 4.2 X10^3/uL (2.0-7.7); Basophil# 0.04 X10^3/uL; Basophil% 0.5 % (0-1); Eosinophil# 0.22 X10^3/uL; Eosinophils% 2.9 % (0-5); Hematocrit 32.4 % (37-47); Hemoglobin 10.1 g/dL (12.0-15.0); Lymphocyte # 2.26 X10^3/ul (0.83-4.51); Mean Corp Hgb Conc 31.2 g/dL (32-36); Mean Corpuscular Hgb 31.3 pg (27.0-32.0); Mean Corpuscular Volume 100.3 fL (81-99); Mean Platelet Vol. 8.8 fl (6.2-12.0); Monocyte# 0.83 X10^3/uL; NRBC Flagged by Analyzer 0 % (0-5); Neutrophil # 4.17 X10^3/uL (2.7-7.7); Neutrophil % 55.3 % (47-70); Platelet Count 653 K/mm3 (150-450); RBC Distribution Width CV 14.9 % (11.6-14.6); RBC Distribution Width SD 54.1 fl (35.1-43.9); Red Blood Count 3.23 M/mm3 (4.2-5.4); White Blood Count 7.5 K/mm3 (4.4-11.0)
[2024-11-20 06:49] LABS: Anion Gap 12 (5-15); BUN 12 mg/dL (4-19); BUN/Creat Ratio 20.4 RATIO (10-20); Carbon Dioxide 22.3 mmol/L (21.0-32.0); Chloride 109 mmol/L (98-108); EST Glomerular Filtration Rate 97 (>60); Glucose 86 mg/dL (70-99); Potassium 3.9 mmol/L (3.3-5.1); Sodium Level 144 mmol/L (133-145)
[2024-11-20] MEDS: 0.9% Normal Saline (1000mL) 1,000 ML 999 ML IV (07:24)
--- NOTE | 2024-11-20 08:07 | NURSING ---
Critical calcium of 13.[address] Gutierrez made aware and order to give 2 liters wide open and redraw BMP before D/C. Patient made aware and fluids started.
[2024-11-20 08:24] LABS: Calcium,Total 9.1 mg/dL (7.6-11.0)
[2024-11-20] MEDS: diazePAM 5 MG Tablet PO (08:35)
[2024-11-20] MEDS: APIXABAN 2.5 MG TABLET (WCH) PO (08:36)
[2024-11-20] MEDS: Pantoprazole Sodium 40 MG Tablet PO (08:36)
[2024-11-20] MEDS: Benztropine 2 MG Tablet 1 MG PO (08:36)
[2024-11-20] MEDS: Potassium Chloride Oral Tablet 10 MEQ PO (08:36)
[2024-11-20 11:41] VITALS: BP 123/78; PULSE 88; RESP 16; TEMP 36.7; O2SAT 98
--- NOTE | 2024-11-21 11:24 | MDS.RN ---
Information for the MDS was obtained from review of the clinical record, interview of resident, staff, and direct observation of resident?s care.
== END 2024-11-20 12:05 | disposition home or self-care (01) | DRG 559 ==
PROVIDERS: Admitting Provider Family Medicine Geriatric Medicine; PCP Family Medicine; Referring Provider Family Medicine Geriatric Medicine; Visit Provider Family Medicine Geriatric Medicine
DX: Z47.1 Aftercare following joint replacement surgery (principal); K25.4 Chronic or unspecified gastric ulcer with hemorrhage; F20.9 Schizophrenia, unspecified; D50.9 Iron deficiency anemia, unspecified; F32.9 Major depressive disorder, single episode, unspecified; E87.6 Hypokalemia; G47.30 Sleep apnea, unspecified; M17.11 Unilateral primary osteoarthritis, right knee; E83.52 Hypercalcemia; G89.29 Other chronic pain; Z96.651 Presence of right artificial knee joint; Z79.01 Long term (current) use of anticoagulants; G47.00 Insomnia, unspecified; G89.18 Other acute postprocedural pain; F41.1 Generalized anxiety disorder; Z98.84 Bariatric surgery status; Z79.891 Long term (current) use of opiate analgesic
CPT/HCPCS: 36415; 80048; 85025; 97110; 97116; 97162; 97166; 97530; 97535; 97802